=== PATIENT | male | born 1985 | race Caucasian/White ===

== ENCOUNTER 2017-05-28 19:03 | Emergency (ER) | payer OTHER ==
[~2017-05-28] VITALS: Ht 182.8 cm; Wt 97.5 kg
[2017-05-28 19:50] LABS: BASO % 0.5 % (0.0-1.0); EOS % 0.3 % (1.0-4.0); HEMATOCRIT 43.3 % (42.0-52.0); HEMOGLOBIN 15.3 g/dl (14.0-18.0); LYMPH # 1.7 10*3/uL (1.3-4.4); MEAN CELL VOLUME 88.7 fl (80.0-94.0); MEAN CORPUSCULAR HGB 31.4 pg (27.0-31.0); MEAN CORPUSCULAR HGB CONC 35.3 g/dl (33.0-37.0); MEAN PLATELET VOLUME 10.1 fl (9.6-12.3); MONO # 0.5 10*3/uL (0.1-1.0); MONO % 6.9 % (3.0-9.0); NEUT # 4.3 10*3/uL (2.3-7.9); PLATELET COUNT AUTOMATED 249 10*3/uL (130-400); RED BLOOD COUNT 4.88 10*6/uL (4.50-5.90); RED CELL DISTRI WIDTH 12.6 % (0-14.5); WHITE BLOOD COUNT 6.5 10*3/uL (4.8-10.8)
[2017-05-28 20:01] LABS: ACT PARTIAL THROMBO TIME 23.1 SECONDS (20.8-31.5); INTERNATIONAL NORM RATIO 1.1 (2.0-3.5)
[2017-05-28 20:08] LABS: ALBUMIN 4.2 gm/dl (3.1-4.5); ALKALINE PHOSPHATASE 77 U/L (45-117); BUN 18 mg/dl (7-24); CHLORIDE 106 mmol/L (98-107); CREATININE 1.05 mg/dL (0.70-1.30); MAGNESIUM 2.3 mg/dL (1.5-2.1); POTASSIUM 3.4 mmol/L (3.5-5.1); SGOT/AST 21 IU/L (3-35); SGPT/ALT 27 U/L (12-78); SODIUM 139 mmol/L (136-145); TOTAL PROTEIN 7.2 gm/dL (6.4-8.2)
[2017-05-28 20:11] LABS: TROPONIN I < 0.015 ng/ml (<0.045)
== END 2017-05-28 20:50 | disposition home or self-care (01) ==
LOC: ED 19:03
PROVIDERS: Emergency Medicine
DX: I49.3 Ventricular premature depolarization (principal)

== ENCOUNTER 2017-09-04 16:47 | Emergency (ER) | payer OTHER ==
[~2017-09-04] VITALS: Ht 167.6 cm; Wt 81.6 kg
[2017-09-04 16:57] LABS: BASO % 0.3 % (0.0-1.0); EOS # 0.1 10*3/uL (0.0-0.4); EOS % 0.4 % (1.0-4.0); HEMATOCRIT 46.7 % (42.0-52.0); HEMOGLOBIN 16.7 g/dl (14.0-18.0); LYMPH # 3.1 10*3/uL (1.3-4.4); LYMPH % 26.1 % (27.0-41.0); MEAN CELL VOLUME 87.1 fl (80.0-94.0); MEAN CORPUSCULAR HGB 31.2 pg (27.0-31.0); MEAN CORPUSCULAR HGB CONC 35.8 g/dl (33.0-37.0); MEAN PLATELET VOLUME 10.1 fl (9.6-12.3); MONO # 0.8 10*3/uL (0.1-1.0); MONO % 6.5 % (3.0-9.0); NEUT # 7.9 10*3/uL (2.3-7.9); NEUT % 66.3 % (47.0-73.0); PLATELET COUNT AUTOMATED 287 10*3/uL (130-400); RED BLOOD COUNT 5.36 10*6/uL (4.50-5.90); RED CELL DISTRI WIDTH 12.2 % (0-14.5)
[2017-09-04 17:14] LABS: ALBUMIN 4.5 gm/dl (3.1-4.5); ALKALINE PHOSPHATASE 85 U/L (45-117); BUN 22 mg/dl (7-24); CHLORIDE 101 mmol/L (98-107); CREATININE 1.18 mg/dL (0.70-1.30); POTASSIUM 3.1 mmol/L (3.5-5.1); SGOT/AST 19 IU/L (3-35); SGPT/ALT 35 U/L (12-78); SODIUM 137 mmol/L (136-145); TOTAL PROTEIN 7.9 gm/dL (6.4-8.2)
[2017-09-04 17:17] LABS: TROPONIN I < 0.015 ng/ml (<0.045)
== END 2017-09-04 20:05 | disposition short-term general hospital (02) ==
LOC: ED 16:47
PROVIDERS: Emergency Medicine
DX: I47.2 Ventricular tachycardia (principal)

== ENCOUNTER → 2020-07-14 | Outpatient (CLI) | payer BC | END | disposition home or self-care (01) | LOC: COVID19 14:38 | PROVIDERS: ATTEND Internal Medicine | DX: Z20.828 Contact with and (suspected) exposure to other viral communicable diseases (principal) ==

== ENCOUNTER 2022-03-30 22:43 | Emergency (ER) | payer OTHER, BC ==
[~2022-03-30] VITALS: Wt 86.2 kg
== END 2022-03-30 23:52 | disposition home or self-care (01) ==
LOC: ED 22:43
DX: S50.812A Abrasion of left forearm, initial encounter (principal); Z11.4 Encounter for screening for human immunodeficiency virus [HIV]; X58.XXXA Exposure to other specified factors, initial encounter; Y93.89 Activity, other specified; Y92.89 Other specified places as the place of occurrence of the external cause; Y99.9 Unspecified external cause status

== ENCOUNTER 2023-04-05 20:00 | Emergency (ER) | payer OTHER ==
[~2023-04-05] VITALS: Ht 167.6 cm; Wt 90.7 kg
[2023-04-05 20:37] LABS: BASO % 0.6 % (0.0-1.0); EOS # 0.3 10*3/uL (0.0-0.4); EOS % 3.9 % (1.0-4.0); HEMATOCRIT 43.5 % (42.0-52.0); LYMPH # 1.9 10*3/uL (1.3-4.4); LYMPH % 28.1 % (27.0-41.0); MEAN CELL VOLUME 75.7 fl (80.0-94.0); MEAN CORPUSCULAR HGB 23.5 pg (27.0-31.0); MEAN PLATELET VOLUME 10.2 fl (9.6-12.3); MONO # 0.7 10*3/uL (0.1-1.0); MONO % 9.6 % (3.0-9.0); NEUT % 57.4 % (47.0-73.0); PLATELET COUNT AUTOMATED 284 10*3/uL (130-400); RED BLOOD COUNT 5.75 10*6/uL (4.50-5.90); RED CELL DISTRI WIDTH 15.3 % (0-14.5); WHITE BLOOD COUNT 6.9 10*3/uL (4.8-10.8)
[2023-04-05 20:48] LABS: ACT PARTIAL THROMBO TIME 24.7 SECONDS (20.0-32.1)
[2023-04-05 21:06] LABS: ALKALINE PHOSPHATASE 72 U/L (46-116); BUN 14 mg/dl (9-23); CHLORIDE 105 mmol/L (98-107); POTASSIUM 3.7 mmol/L (3.4-5.1); SGPT/ALT 43 U/L (10-49); TOTAL PROTEIN 6.7 gm/dL (6.0-8.0)
[2023-04-05] MEDS ORDERED: MEDROL DOSEPAK4 MG PO (22:15)
== END 2023-04-05 22:34 | disposition left against medical advice (07) ==
LOC: ED 20:00
PROVIDERS: Nurse Practitioner Family
DX: R20.0 Anesthesia of skin (principal); M54.50 Low back pain, unspecified; R25.1 Tremor, unspecified; F41.9 Anxiety disorder, unspecified

== ENCOUNTER → 2023-04-24 | Outpatient (CLI) | payer OTHER ==
[~2023-04-24] MED LIST: MEDROL DOSEPAK4 MG PO
== END | disposition home or self-care (01) ==
LOC: MRI 01:22
PROVIDERS: ATTEND Chiropractor
DX: M47.26 Other spondylosis with radiculopathy, lumbar region (principal); M48.061 Spinal stenosis, lumbar region without neurogenic claudication; M51.36 Other intervertebral disc degeneration, lumbar region

== ENCOUNTER 2024-07-08 12:11 | Emergency (ER) | payer OTHER ==
[~2024-07-08] VITALS: Ht 167.6 cm; Wt 86.2 kg
[2024-07-08] MEDS ORDERED: Acetaminophen/Oxycodone 5 MG/325 MG TABLET PO ONE (12:15)
[2024-07-08] MEDS ORDERED: PERCOCET 5-3251 EACH PO (14:26)
== END 2024-07-08 14:31 | disposition home or self-care (01) ==
LOC: ED 12:11
DX: S92.191A Other fracture of right talus, initial encounter for closed fracture (principal); S09.8XXA Other specified injuries of head, initial encounter; M54.2 Cervicalgia; V43.52XA Car driver injured in collision with other type car in traffic accident, initial encounter; Y93.89 Activity, other specified; Y92.410 Unspecified street and highway as the place of occurrence of the external cause; Y99.8 Other external cause status

== ENCOUNTER → 2025-07-19 | Outpatient (CLI) | payer OTHER ==
[~2025-07-19] MED LIST changes: +PERCOCET 5-3251 EACH PO
== END | disposition home or self-care (01) ==
LOC: MRI 15:57
PROVIDERS: ATTEND Psychiatry & Neurology Neurology
DX: M47.27 Other spondylosis with radiculopathy, lumbosacral region (principal)